=== PATIENT | female | born 1985 | race Caucasian/White ===

== ENCOUNTER 2019-06-18 10:12 | Emergency (ER) | payer BC ==
[~2019-06-18] VITALS: Ht 162.6 cm; Wt 84.5 kg
[2019-06-18 10:34] VITALS: BP 132/92
[2019-06-18] MEDS ORDERED: LORazepam 1 MG tablet PO ONE (11:00)
--- NOTE | 2019-06-18 11:29 | NUR ---
[facility]
--- NOTE | 2019-06-18 11:59 | NUR ---
MET WITH PATIENT AND . REPORTS DEPRESSION SINCE MARCH. TREATMENT WITH PROZAC BY PCP THAT HAS NOT BEEN EFFECTIVE. REPORTS ANXIETY AND DIFFICULTY FALLING ASLEEP. NO PLAN TO HARM SELF AND STATES "I JUST DO NOT WANT TO FEEL THIS WAY". AGREEABLE TO VOLUNTARY INPATIENT ADMISSION AT [facility]. PLAN AND INTAKE PROCESS WAS DISCUSSED WITH PATIENT AND . DR. RIOS WAS NOTIFIED OF SAFE DISCHARGE PLAN TO FACILITATE PSYCHIATRIC TREATMENT.
== END 2019-06-18 12:07 | disposition home or self-care (01) ==
LOC: ER 10:13
DX: F32.9 Major depressive disorder, single episode, unspecified (principal); F41.9 Anxiety disorder, unspecified; F12.90 Cannabis use, unspecified, uncomplicated; Z88.1 Allergy status to other antibiotic agents; Z88.6 Allergy status to analgesic agent; Z88.8 Allergy status to other drugs, medicaments and biological substances
CPT/HCPCS: 99284